=== PATIENT | female | born 1995 | race American Indian/Alaskan Native ===

== ENCOUNTER 2020-11-04 13:00 | Emergency (ER) | payer MEDICAID ==
--- NOTE | 2020-11-04 13:28 | EDM.PDOC ---
ED HPI GENERAL MEDICAL PROBLEM - General Chief Complaint: Upper Extremity Injury/Pain Stated Complaint: NEEDS STITCHES REMOVED Time Seen by Provider: 11/04/20 13:23 Source of Information: Reports: Patient History Limitations: Reports: No Limitations - History of Present Illness INITIAL COMMENTS - FREE TEXT/NARRATIVE: pt had stitches placed 10 days ago and is here for removal. She states it was an accident at home. She has a 5 inch laceration on the ruiz aspect of the rt arm. Onset: Today Duration: Day(s): Location: Reports: Upper Extremity, Right Associated Symptoms: Reports: No Other Symptoms - Related Data Allergies Allergy/AdvReac Type Severity Reaction Status Date / Time ibuprofen Allergy Hives Verified 11/04/20 13:22 Penicillins Allergy Hives Verified 11/04/20 13:22 Home Meds: Home Meds NK [No Known Home Meds] 11/04/20 [History] Review of Systems - Review of Systems Review Of Systems: See Below Musculoskeletal: Reports: Other ( stitches in the rt arm. ) ED EXAM, GENERAL - Physical Exam Exam: See Below Free Text/Narrative:: pt arrived with ahistory of a laceration on the rt forearm 10 days ago. Exam Limited By: No Limitations General Appearance: Alert, No Apparent Distress, Anxious Extremities: Other ( stitches were removed without difficulty from rt arm. ) Neurological: Alert, Oriented Course - Vital Signs Last Recorded V/S: Last Vital Signs Temp 36.2 C 11/04/20 13:20 Pulse 100 11/04/20 13:20 Resp 17 11/04/20 13:20 BP 128/74 11/04/20 13:20 Pulse Ox 100 11/04/20 13:20 Departure - Departure Time of Disposition: 13:27 Disposition: Home, Self-Care 01 Condition: Fair Clinical Impression: Visit for wound check - Discharge Information Referrals: PCP,None [Primary Care Provider] - Care Plan Goals: rtc if problems. Sepsis Event Note (ED) - Focused Exam Vital Signs: Vital Signs Temp Pulse Resp BP Pulse Ox 11/04/20 13:20 36.2 C 100 17 128/74 100
== END 2020-11-04 13:34 | disposition home or self-care (01) ==
LOC: JP.ED 13:00
DX: S41.111D Laceration without foreign body of right upper arm, subsequent encounter (principal); Z88.6 Allergy status to analgesic agent; Z88.0 Allergy status to penicillin; X58.XXXD Exposure to other specified factors, subsequent encounter
CPT/HCPCS: 99281; 99282